=== PATIENT | female | born 1950 | race Caucasian/White ===

== ENCOUNTER 2019-12-01 17:48 | Emergency (ER) | payer MEDICARE, OTHER ==
[~2019-12-01] VITALS: Ht 162.5 cm; Wt 90.7 kg
[2019-12-01] MEDS ORDERED: NAPROSYN500 MG PO (20:07)
== END 2019-12-01 20:30 | disposition home or self-care (01) ==
LOC: ED 17:48
DX: R07.89 Other chest pain (principal)

== ENCOUNTER 2021-10-10 21:02 | Emergency (ER) | payer MEDICARE, OTHER ==
[~2021-10-10] VITALS: Wt 90.7 kg
[~2021-10-10 21:02] MED LIST: NAPROSYN500 MG PO
== END 2021-10-10 22:22 | disposition home or self-care (01) ==
LOC: ED 21:02
DX: T63.441A Toxic effect of venom of bees, accidental (unintentional), initial encounter (principal); R60.0 Localized edema; R06.2 Wheezing; Z88.1 Allergy status to other antibiotic agents; Y92.89 Other specified places as the place of occurrence of the external cause

== ENCOUNTER 2024-09-30 00:01 | Emergency (ER) | payer MEDICARE, OTHER ==
[~2024-09-30] VITALS: Ht 160 cm; Wt 90.7 kg
[2024-09-30] MEDS ORDERED: LOSARTAN POTASS25 M1 PO (00:18)
[2024-09-30] MEDS ORDERED: diphenhydrAMINE hydrochloride 25 MG CAP PO ONE (01:05)
== END 2024-09-30 01:16 | disposition home or self-care (01) ==
LOC: ED 00:01
DX: T63.441A Toxic effect of venom of bees, accidental (unintentional), initial encounter (principal); M79.641 Pain in right hand; R22.31 Localized swelling, mass and lump, right upper limb; I10 Essential (primary) hypertension; Z88.1 Allergy status to other antibiotic agents; Z79.899 Other long term (current) drug therapy; Y92.89 Other specified places as the place of occurrence of the external cause